=== PATIENT | female | born 2000 | race Caucasian/White ===

== ENCOUNTER 2019-03-20 22:42 | Emergency (ER) | payer SELFPAY, MEDICAID, OTHER ==
[2019-03-21] MEDS: KETOROLAC 15 MG INJ IM (02:03)
== END 2019-03-21 03:10 | disposition home or self-care (01) ==
LOC: FTE 22:42
DX: S16.1XXA Strain of muscle, fascia and tendon at neck level, initial encounter (principal); S06.0X0A Concussion without loss of consciousness, initial encounter; V43.52XA Car driver injured in collision with other type car in traffic accident, initial encounter
CPT/HCPCS: 81025; 96372; 99284-25